=== PATIENT | male | born 1945 | race Caucasian/White ===

== ENCOUNTER 2020-08-22 11:49 | Outpatient (CLI) | payer MEDICARE, OTHER ==
[2020-08-23 01:30] LABS: SARS-CoV-2 PCR by NAA Not Detected (NotDetected)
== END 2020-08-22 11:50 | disposition home or self-care (01) ==
LOC: LABBT 11:49
PROVIDERS: ATTEND Ophthalmology Retina Specialist
DX: Z01.812 Encounter for preprocedural laboratory examination (principal); H54.7 Unspecified visual loss; Z20.822 Contact with and (suspected) exposure to COVID-19
CPT/HCPCS: U0003; U0005; 87635

== ENCOUNTER 2020-08-25 06:04 | Day surgery (SDC) | payer MEDICARE, OTHER ==
[2020-08-24 10:31] VITALS: BMI 36.6
[2020-08-25] MEDS ORDERED: Phenylephrine 2.5% Ophth Soln 5 ML BOT ONE (06:08)
[2020-08-25] MEDS ORDERED: Cyclopentolate 1% Opth Drop 2 ML BOT ONE (06:08)
[2020-08-25] MEDS ORDERED: Fluorouracil 100 MG, Enoxaparin Sodium 25 MG in Ophthalmic Irrigation Solution 500 ML IRR SCH (06:15)
[2020-08-25] MEDS ORDERED: Midazolam HCl 2 mg/2 ml Vial ONE (06:22)
[2020-08-25] MEDS ORDERED: Fentanyl 100 MCG/2 ML VIAL ONE (06:22)
[2020-08-25] MEDS ORDERED: Lidocaine 1% PF 5 ML VIAL ONE (07:02)
[2020-08-25] MEDS ORDERED: Triamcinolone 40 MG/ML VIAL ONE (07:02)
[2020-08-25] MEDS ORDERED: Bupivacaine PF 0.75% SDV 10 ML ONE (07:02)
[2020-08-25] MEDS ORDERED: Indocyanine Green 25 MG/10 ML VIAL ONE (07:02)
[2020-08-25] MEDS ORDERED: CEFAZOLIN 1 GM VIAL ONE (07:02)
[2020-08-25] MEDS ORDERED: Lidocaine 4% PF 5 ML AMP ONE (07:02)
[2020-08-25] MEDS ORDERED: PROPOFOL 200 MG/20 ML VIAL ONE (07:02)
[2020-08-25] MEDS ORDERED: Maxitrol 0.1% Opth Oint 3.5 GM TUBE ONE (07:02)
== END 2020-08-25 09:53 | disposition home or self-care (01) ==
LOC: SDC 06:04
PROVIDERS: ATTEND Ophthalmology Retina Specialist
PROC: 08T43ZZ Resection of Right Vitreous, Percutaneous Approach (ICD-10-PCS; principal; 2020-08-25)
PROC: 08NE3ZZ Release Right Retina, Percutaneous Approach (ICD-10-PCS; 2020-08-25)
DX: H35.371 Puckering of macula, right eye (principal); Z79.82 Long term (current) use of aspirin; Z79.84 Long term (current) use of oral hypoglycemic drugs; Z79.899 Other long term (current) drug therapy; Z88.8 Allergy status to other drugs, medicaments and biological substances
CPT/HCPCS: 93005; 93010; J0690; J1650; J2250; J2704; J3010; J3301; J3490; J9190